=== PATIENT | female | born 1950 | race Caucasian/White ===

== ENCOUNTER 2016-11-02 09:49 | Outpatient (CLI) | payer OTHER ==
--- NOTE | 2016-11-02 14:07 | DIAGNOSTIC IMAGING REPORT ---
PROCEDURE: MG BILATERAL SCREENING W/CAD INDICATION: Screening, personal history of benign right breast biopsy. TECHNIQUE: Standard CC and MLO views bilaterally. Computer aided detection was used. COMPARISON: 03/19/2008, 01/05/2005 FINDINGS: Minimally dense fibrofatty tissue is present bilaterally. No developing densities, areas of architectural distortion, or suspicious microcalcifications. IMPRESSION: 1. Stable mammograms without radiographic evidence of malignancy. RESULT CODE: 1- Negative. A. A negative report should not delay biopsy if a dominant or clinically suspicious mass is present. 10-15% of cancers are not identified by x-ray. B. A negative report may reinforce clinical impression. C. Adenosis and dense breasts may obscure an underlying neoplasm. D. False positive reports average 6-10%. E.. A yearly screening mammogram is recommended. A reminder letter will be scheduled.
--- NOTE | 2016-11-02 16:22 | DIAGNOSTIC IMAGING REPORT ---
REFERRING PHYSICIAN/PROVIDER: Jonny Phelan DO CONSULTING HEAD [employer]: Pako Hankins MD PROCEDURE: M-mode 2D echocardiography with spectral and color flow Doppler TECHNICAL QUALITY: Images are suboptimal quality. INDICATION: LOWER EXTREMITY EDEMA, GRADE 1 MURMUR RHYTHM DURING PROCEDURE: Normal sinus rhythm. INTERPRETATIONS: LEFT VENTRICLE: The left ventricular wall thickness is within normal limits. The left ventricular chamber size is within normal limits. The left ventricular ejection fraction is normal with an estimated ejection fraction of 65-70%. There is decrease visualization of the subendocardial border but overall there is no gross evidence of LV wall motion abnormalities. LV diastolic function is normal. RIGHT VENTRICLE: The right ventricular chamber size is grossly normal and there is normal RV systolic function. ATRIA: The left atrial chamber size is within normal limits measured at 18.1 milliliters per meter squared. The right atrial chamber size is within normal limits. There is no evidence of a PFO/ASD based on color Doppler. MITRAL VALVE: There is evidence for mild to moderate mitral annular calcification. There is no evidence of mitral regurgitation. AORTIC VALVE: The aortic valve is not well visualized but it appears to be grossly normal. There is mild aortic sclerosis without stenosis. There is no evidence of aortic regurgitation. TRICUSPID VALVE: The tricuspid leaflets are thin and pliable and there is trace of tricuspid regurgitation. RV systolic pressure could not be estimated because of the lack of a measurable TR jet velocity. PULMONIC VALVE: The pulmonic valve is not well visualized but there is trace pulmonic regurgitation. GREAT VESSELS: The aorta root is within normal limits. The ascending aorta is measured at 3.7 cm which is mildly enlarged. The IVC was not well visualized. PERICARDIUM: The pericardium appears to be grossly normal. IMPRESSION: 1. Normal LV and RV systolic function. There is no gross evidence of LV focal wall motion abnormalities. LV diastolic function is within normal limits. 2. There is no evidence of significant valvular heart disease. 3. The ascending aorta is measured at 3.7 cm which is mildly enlarged.
== END 2016-11-02 23:00 | disposition home or self-care (01) ==
LOC: US SRH 09:49
DX: R60.0 Localized edema (principal); Z12.31 Encounter for screening mammogram for malignant neoplasm of breast